=== PATIENT | male | born 1965 | race Two or more races ===

== ENCOUNTER 2024-05-28 11:11 | Emergency (ER) | payer OTHER ==
[~2024-05-28] VITALS: Ht 180.3 cm; Wt 90.7 kg
[2024-05-28 13:52] LABS: HEMATOCRIT 43.3 % (39.0-48.0); HEMOGLOBIN 14.9 g/dL (13-16.00); MEAN CELL VOLUME 91.2 fL (80.0-100.00); MEAN CORPUSCULAR HEMOGLOBIN 31.5 pg (27.00-32.0); MEAN CORPUSCULAR HGB CONC 34.5 g/dl (32.0-36.0); PLATELET COUNT 303 K/uL (150-450); RED BLOOD COUNT 4.74 M/uL (4.00-6.00); RED CELL DISTRIBUTION WIDTH 13.2 % (11.5-14.5)
== END 2024-05-28 15:27 | disposition home or self-care (01) ==
LOC: ER 11:13
PROVIDERS: General Practice
DX: S00.83XA Contusion of other part of head, initial encounter (principal); W18.39XA Other fall on same level, initial encounter; Y93.E1 Activity, personal bathing and showering; Y92.013 Bedroom of single-family (private) house as the place of occurrence of the external cause; Y99.9 Unspecified external cause status